=== PATIENT | female | born 1955 | race Caucasian/White ===

== ENCOUNTER 2021-04-15 13:23 | Outpatient (CLI) | payer MEDICARE, MEDICAID | END 2021-04-15 13:24 | disposition home or self-care (01) | LOC: CSHMAMMO 13:23 | PROVIDERS: ATTEND Transplant Surgery | DX: Z13.820 Encounter for screening for osteoporosis (principal); Z48.23 Encounter for aftercare following liver transplant; Z13.6 Encounter for screening for cardiovascular disorders; C22.0 Liver cell carcinoma; M81.0 Age-related osteoporosis without current pathological fracture | CPT/HCPCS: 77080 ==

== ENCOUNTER 2021-04-18 09:00 | Outpatient (CLI) | payer MEDICARE, MEDICAID | END 2021-04-18 09:01 | disposition home or self-care (01) | LOC: CSHNM 09:00 | PROVIDERS: ATTEND Transplant Surgery | DX: Z94.4 Liver transplant status (principal); Z12.89 Encounter for screening for malignant neoplasm of other sites | CPT/HCPCS: 78306; A9503 ==

== ENCOUNTER 2021-12-22 11:12 | Observation (INO) | payer OTHER ==
[2021-12-22 11:52] LABS: #Monocytes 0.3 10x3/uL (0.0-1.1); #Neutrophils 2.5 10x3/uL (1.5-8.4); %Basophils 0.3 % (0.0-2.0); %Eosinophils 1.2 % (0.0-6.0); %Lymphocytes 17.9 % (18.0-47.0); %Monocytes 8.6 % (0.0-10.0); %Neutrophils 71.7 % (40.0-75.0); Hemoglobin 9.3 g/dL (12.0-15.5); Mean Corpuscular HGB CONC 31.7 g/dL (32.0-36.0); Mean Corpuscular Hemoglobin 26.1 pg (27.0-33.0); Mean Corpuscular Volume 82.3 fl (81.6-98.3); Mean Platelet Volume 10.8 fl (7.4-10.4); Platelet Count 131 10x3/uL (150-450); RBC Distribution Width 14.7 % (11.5-14.5); Red Blood Cell (RBC) Count 3.56 10x6/uL (3.90-5.03); White Blood Cell (WBC) Count 3.5 10x3/uL (3.5-10.5)
[2021-12-22 12:00] LABS: ALT (SGPT) 11 U/L (8-55); AST (SGOT) 17 U/L (5-34); Alkaline Phosphatase 107 U/L (40-110); Anion Gap 14 mmol/L (10-20); BUN (Urea Nitrogen) 20 mg/dL (9.8-20.1); Bilirubin, Total 0.7 mg/dL (0.2-1.2); Calc. Creatinine Clearance 0 mL/min (70-130); Calcium 8.8 mg/dL (7.8-10.44); Carbon Dioxide 21 mmol/L (23-31); Chloride 110 mmol/L (98-107); Estimated GFR 51; Globulin 2.7 g/dL (2.4-3.5); Glucose 109 mg/dL (80-115); Lipase 37 U/L (8-78); Potassium 4.1 mmol/L (3.5-5.1); Protein, Total 6.7 g/dL (5.8-8.1); Sodium 141 mmol/L (136-145)
[2021-12-22] MEDS ORDERED: Iopamidol 300 61% 100 ML VIAL FS ONE (14:25)
[2021-12-22 15:12] LABS: Bilirubin Neg (Negative); Blood, Urine 25 (Negative); Clarity Sl. Cloudy (Clear); Glucose, Urine (Dipstick) Normal (Negative); Ketone, Urine Negative (Negative); Leukocyte 500 (Negative); Nitrite Negative (Negative); Protein, Urine (Dipstick) 30 mg/dl (Neg-Trace); Specific Gravity, Urine 1.015 (1.005-1.030); Urobilinogen Normal mg/dL (Less than 2)
[2021-12-22 15:26] LABS: Bacteria/HPF 3+ HPF (None Seen)
[2021-12-22] MEDS ORDERED: Morphine 4 MG/ML VIAL ONE (16:10)
[2021-12-22] MEDS ORDERED: Ondansetron PF 4 MG/2 ML Vial ONE (16:11)
[2021-12-22] MEDS ORDERED: methylPREDNISolone Sod Succ 40 MG VIAL ONE (16:11)
[2021-12-22] MEDS ORDERED: Famotidine/PF 20 mg/2ml Vial ONE (16:11)
[2021-12-22] MEDS ORDERED: diphenhydrAMINE 50 MG/ML VIAL ONE (16:11)
[2021-12-22] MEDS ORDERED: metroNIDAZOLE 500 MG/100 ML BAG ONE (18:08)
[2021-12-22] MEDS ORDERED: Calcium Carbonate 500 MG ChewTAB PO PRN (19:16)
[2021-12-22] MEDS ORDERED: Ondansetron PF 4 MG/2 ML Vial IVP PRN (19:16)
[2021-12-22] MEDS ORDERED: Zolpidem Tartrate 5 MG TAB PO PRN (19:16)
[2021-12-22] MEDS ORDERED: Guaifenesin DM 100-10/5 ML UDCUP PO PRN (19:16)
[2021-12-22] MEDS ORDERED: Acetaminophen 325 MG TAB PO PRN (19:16)
[2021-12-22] MEDS ORDERED: Dextrose 50% Abboject 50 ML SYRINGE SLOW IVP PRN (19:27)
[2021-12-22] MEDS ORDERED: Dextrose 5% in Water 1,000 ML IV PRN (19:27)
[2021-12-22] MEDS ORDERED: HumaLOG 300 UNITS/3 ML VIAL SC PRN (19:27)
[2021-12-22] MEDS ORDERED: Morphine 2 MG/ML VIAL SLOW IVP PRN (21:36)
[2021-12-22] MEDS ORDERED: Tacrolimus 1 MG CAP PO SCH (21:45)
[2021-12-22] MEDS ORDERED: Metoprolol Tartrate 50 MG TAB PO SCH (21:45)
[2021-12-22] MEDS ORDERED: cloNIDine 0.1 MG TAB PO SCH (21:45)
[2021-12-22] MEDS ORDERED: Mycophenolate 250 MG CAP PO SCH (21:45)
[2021-12-22] MEDS ORDERED: Gabapentin 300 MG CAP PO SCH (21:45)
[2021-12-22] MEDS ORDERED: Ursodiol 300 MG CAP PO SCH (21:45)
[2021-12-22] MEDS ORDERED: Lactated Ringer's 1,000 ML IV SCH (22:00)
[2021-12-22] MEDS: HYDROcodone/Acetaminophen 5/325 mg Tablet PO PRN (22:04)
[2021-12-23] MEDS: metroNIDAZOLE 500 MG in Premix Bag 1 BAG IVPB SCH ×3 (02:55→18:33)
[2021-12-23 05:09] LABS: Mean Corpuscular HGB CONC 32.4 g/dL (32.0-36.0); Mean Corpuscular Hemoglobin 26.5 pg (27.0-33.0); Mean Corpuscular Volume 81.8 fl (81.6-98.3); Mean Platelet Volume 11.7 fl (7.4-10.4); Platelet Count 97 10x3/uL (150-450); RBC Distribution Width 14.9 % (11.5-14.5)
[2021-12-23 05:10] LABS: #Monocytes 0.1 10x3/uL (0.0-1.1); #Neutrophils 1.6 10x3/uL (1.5-8.4); %Lymphocytes 15.5 % (18.0-47.0); %Monocytes 6.3 % (0.0-10.0); %Neutrophils 77.7 % (40.0-75.0)
[2021-12-23 05:19] LABS: Anion Gap 15 mmol/L (10-20); BUN (Urea Nitrogen) 16 mg/dL (9.8-20.1); Calc. Creatinine Clearance 72 mL/min (70-130); Calcium 8.6 mg/dL (7.8-10.44); Carbon Dioxide 20 mmol/L (23-31); Chloride 109 mmol/L (98-107); Estimated GFR 68; Glucose 150 mg/dL (80-115); Potassium 4.5 mmol/L (3.5-5.1); Sodium 139 mmol/L (136-145)
[2021-12-23] MEDS: HYDROcodone/Acetaminophen 5/325 mg Tablet PO PRN ×2 (07:55→20:29)
[2021-12-23] MEDS ORDERED: Enoxaparin Sodium 40 MG/0.4 ML SYRINGE SC SCH (09:00)
[2021-12-23] MEDS: Mycophenolate 250 MG CAP PO SCH ×2 (10:00→20:31)
[2021-12-23] MEDS: Gabapentin 300 MG CAP PO SCH ×2 (10:00→20:29)
[2021-12-23] MEDS: cloNIDine 0.1 MG TAB PO SCH ×2 (10:00→20:29)
[2021-12-23] MEDS: Ezetimibe 10 MG TAB PO SCH (10:00)
[2021-12-23] MEDS: Clopidogrel Bisulfate 75 MG TAB PO SCH (10:00)
[2021-12-23] MEDS: Aspirin 81 mg Enteric Coated Tablet PO SCH (17:12)
[2021-12-23] MEDS: Metoprolol Tartrate 50 MG TAB PO SCH ×2 (17:16→20:30)
[2021-12-23] MEDS: Ursodiol 300 MG CAP PO SCH ×2 (17:19→20:28)
[2021-12-23] MEDS: Tacrolimus 1 MG CAP PO SCH ×2 (17:19→20:29)
[2021-12-24] MEDS: metroNIDAZOLE 500 MG in Premix Bag 1 BAG IVPB SCH ×2 (02:00→09:19)
[2021-12-24 08:26] VITALS: TEMP 98.3
[2021-12-24] MEDS: Metoprolol Tartrate 50 MG TAB PO SCH (08:37)
[2021-12-24] MEDS: Mycophenolate 250 MG CAP PO SCH (08:37)
[2021-12-24] MEDS: Aspirin 81 mg Enteric Coated Tablet PO SCH (08:37)
[2021-12-24] MEDS: Gabapentin 300 MG CAP PO SCH (08:37)
[2021-12-24] MEDS: Clopidogrel Bisulfate 75 MG TAB PO SCH (08:37)
[2021-12-24 08:38] VITALS: BP 151/70
[2021-12-24] MEDS: Ezetimibe 10 MG TAB PO SCH (08:38)
[2021-12-24] MEDS: Tacrolimus 1 MG CAP PO SCH (08:38)
[2021-12-24] MEDS: Ursodiol 300 MG CAP PO SCH (08:38)
[2021-12-24] MEDS: cloNIDine 0.1 MG TAB PO SCH (08:38)
== END 2021-12-24 10:31 | disposition home or self-care (01) ==
LOC: CSHERS 11:12 → CSHTELE 19:16
PROVIDERS: ADMIT Student in an Organized Health Care Education/Training Program; ATTEND Family Medicine
DX: K52.9 Noninfective gastroenteritis and colitis, unspecified (principal); I25.10 Atherosclerotic heart disease of native coronary artery without angina pectoris; N18.9 Chronic kidney disease, unspecified; I13.0 Hypertensive heart and chronic kidney disease with heart failure and stage 1 through stage 4 chronic kidney disease, or unspecified chronic kidney disease; I50.9 Heart failure, unspecified; N17.9 Acute kidney failure, unspecified; K21.9 Gastro-esophageal reflux disease without esophagitis; D64.9 Anemia, unspecified; D69.6 Thrombocytopenia, unspecified; E11.21 Type 2 diabetes mellitus with diabetic nephropathy; E66.9 Obesity, unspecified; N39.0 Urinary tract infection, site not specified; E78.5 Hyperlipidemia, unspecified; N13.30 Unspecified hydronephrosis; Z20.822 Contact with and (suspected) exposure to COVID-19; Z68.30 Body mass index [BMI] 30.0-30.9, adult; Z91.041 Radiographic dye allergy status; Z79.82 Long term (current) use of aspirin; Z90.49 Acquired absence of other specified parts of digestive tract; Z95.5 Presence of coronary angioplasty implant and graft; Z90.710 Acquired absence of both cervix and uterus; Z79.4 Long term (current) use of insulin; Z79.899 Other long term (current) drug therapy; Z87.891 Personal history of nicotine dependence; Z94.4 Liver transplant status; Z85.05 Personal history of malignant neoplasm of liver
CPT/HCPCS: 74177; 80048; 80053; 82962 ×2; 83605; 83690; 84145; 84484; 85025 ×2; 87086; 93005; 96365; 96366; 96367; 96375; 96376 ×3; 99285; G0378 ×4; U0003; U0005; 36415; 36416; 81003; 81015; J1200; J1956; J2270; J2405; J2920; J7120; J7507; J7517; Q9967; S0028

== ENCOUNTER 2022-03-11 22:00 | Inpatient (IN) | payer OTHER, MEDICAID ==
[2022-03-11 23:37] LABS: ALT (SGPT) 14 U/L (8-55); AST (SGOT) 28 U/L (5-34); Alkaline Phosphatase 109 U/L (40-110); Anion Gap 17 mmol/L (10-20); BUN (Urea Nitrogen) 31 mg/dL (9.8-20.1); Bilirubin, Total 0.9 mg/dL (0.2-1.2); Calc. Creatinine Clearance 0 mL/min (70-130); Calcium 8.5 mg/dL (7.8-10.44); Carbon Dioxide 18 mmol/L (23-31); Chloride 107 mmol/L (98-107); Estimated GFR 33; Globulin 3.2 g/dL (2.4-3.5); Glucose 128 mg/dL (80-115); Lipase 28 U/L (8-78); Potassium 4.1 mmol/L (3.5-5.1); Protein, Total 7.2 g/dL (5.8-8.1); Sodium 138 mmol/L (136-145)
[2022-03-11 23:46] LABS: Mean Platelet Volume 11.8 fl (7.4-10.4); Platelet Count 84 10x3/uL (150-450)
[2022-03-11 23:48] LABS: #Monocytes 0.4 10x3/uL (0.0-1.1); #Neutrophils 2.3 10x3/uL (1.5-8.4); %Lymphocytes 29.2 % (18.0-47.0); %Monocytes 9.4 % (0.0-10.0); %Neutrophils 61.1 % (40.0-75.0); Hemoglobin 9.3 g/dL (12.0-15.5); Mean Corpuscular HGB CONC 32.2 g/dL (32.0-36.0); Mean Corpuscular Hemoglobin 26.7 pg (27.0-33.0); RBC Distribution Width 16.8 % (11.5-14.5); Red Blood Cell (RBC) Count 3.48 10x6/uL (3.90-5.03); White Blood Cell (WBC) Count 3.7 10x3/uL (3.5-10.5)
[2022-03-12] MEDS ORDERED: Famotidine/PF 20 mg/2ml Vial ONE (00:05)
[2022-03-12] MEDS ORDERED: diphenhydrAMINE 50 MG/ML VIAL ONE (00:05)
[2022-03-12] MEDS ORDERED: methylPREDNISolone Sod Succ 40 MG VIAL ONE (00:05)
[2022-03-12 00:17] LABS: Bilirubin Neg (Negative); Blood, Urine 150 (Negative); Clarity Cloudy (Clear); Glucose, Urine (Dipstick) Normal (Negative); Ketone, Urine Negative (Negative); Leukocyte 500 (Negative); Nitrite Negative (Negative); Protein, Urine (Dipstick) 30 mg/dl (Neg-Trace); Urobilinogen Normal mg/dL (Less than 2)
[2022-03-12 00:27] LABS: Bacteria/HPF 4+ HPF (None Seen); Oval Fat Bodies/HPF Rare HPF (None Seen); WBC/HPF 21-50 HPF (0-3)
[2022-03-12 00:56] LABS: SARS-CoV-2 NAA Rapid Test DETECTED (NotDetected)
[2022-03-12] MEDS ORDERED: cefTRIAXone\\ROCEPHIN 1 GM VIAL ONE (02:43)
[2022-03-12] MEDS ORDERED: Calcium Carbonate 500 MG ChewTAB PO PRN (03:10)
[2022-03-12] MEDS ORDERED: Guaifenesin DM 100-10/5 ML UDCUP PO PRN (03:10)
[2022-03-12] MEDS ORDERED: Senokot S 8.6-50 MG TAB PO PRN (03:10)
[2022-03-12] MEDS ORDERED: Dextrose 5% in Water 1,000 ML IV PRN (03:21)
[2022-03-12] MEDS ORDERED: Dextrose 50% Abboject 50 ML SYRINGE SLOW IVP PRN (03:21)
[2022-03-12] MEDS ORDERED: HumaLOG 300 UNITS/3 ML VIAL SC PRN (03:21)
[2022-03-12] MEDS ORDERED: Sodium Chloride 0.9% 1,000 ML IV SCH (04:00)
[2022-03-12] MEDS: HYDROcodone/Acetaminophen 5/325 mg Tablet PO PRN ×3 (04:30→23:02)
[2022-03-12] MEDS ORDERED: HYDROcodone/Acetaminophen 5/325 mg Tablet ONE ×2 (04:43→13:21)
[2022-03-12 08:38] LABS: Anion Gap 13 mmol/L (10-20); BUN (Urea Nitrogen) 26 mg/dL (9.8-20.1); Calc. Creatinine Clearance 0 mL/min (70-130); Calcium 6.5 mg/dL (7.8-10.44); Carbon Dioxide 14 mmol/L (23-31); Cardiac Risk 2.5 (Less than 4.5); Chloride 118 mmol/L (98-107); Cholesterol 71 mg/dl (< 200 Desired); Estimated GFR 58; Glucose 157 mg/dL (80-115); HDL Cholesterol 28 mg/dL (>60 Neg Risk); LDL Cholesterol, Calculated 30 mg/dL; Potassium 3.5 mmol/L (3.5-5.1); Sodium 141 mmol/L (136-145); Triglycerides 67 mg/dL (Less than 150)
[2022-03-12] MEDS ORDERED: Zinc Gluconate 50 MG TAB PO SCH (09:00)
[2022-03-12] MEDS ORDERED: Lactated Ringer's 1,000 ML IV SCH (09:30)
[2022-03-12] MEDS ORDERED: Clopidogrel Bisulfate 75 MG TAB ONE (09:38)
[2022-03-12] MEDS ORDERED: Gabapentin 300 MG CAP ONE (09:41)
[2022-03-12] MEDS ORDERED: Zinc Sulfate 220 MG CAP ONE (09:41)
[2022-03-12] MEDS: Ezetimibe 10 MG TAB PO SCH (10:01)
[2022-03-12] MEDS: Gabapentin 300 MG CAP PO SCH ×2 (10:01→20:35)
[2022-03-12] MEDS: Ursodiol 300 MG CAP PO SCH ×2 (10:01→20:35)
[2022-03-12] MEDS: Zinc Sulfate 220 MG CAP PO SCH (10:01)
[2022-03-12] MEDS: Tacrolimus 1 MG CAP PO SCH ×2 (10:01→20:35)
[2022-03-12] MEDS: Lantus 1000 UNITS/10 ML VIAL SC SCH (10:01)
[2022-03-12] MEDS: Mycophenolate 250 MG CAP PO SCH ×2 (10:01→20:35)
[2022-03-12] MEDS: Clopidogrel Bisulfate 75 MG TAB PO SCH (10:01)
[2022-03-12] MEDS ORDERED: cefTRIAXone\\ROCEPHIN 2 GM VIAL ONE (12:18)
[2022-03-12] MEDS ORDERED: cloNIDine 0.1 MG TAB PO SCH (22:45)
[2022-03-12 23:46] VITALS: BMI 28.5
[2022-03-13] MEDS: cefTRIAXone\\ROCEPHIN 2 GM in Sodium Chloride 0.9% 100 ML IVPB SCH (01:19)
[2022-03-13 02:22] LABS: Bilirubin Neg (Negative); Blood, Urine 10 (Negative); Clarity Clear (Clear); Glucose, Urine (Dipstick) Normal (Negative); Ketone, Urine Negative (Negative); Leukocyte 100 (Negative); Nitrite Negative (Negative); Protein, Urine (Dipstick) 30 mg/dl (Neg-Trace); Specific Gravity, Urine 1.015 (1.005-1.030); Urobilinogen Normal mg/dL (Less than 2)
[2022-03-13 02:31] LABS: Bacteria/HPF Rare-Few HPF (None Seen); RBC/HPF 0-3 HPF (0-3); Squamous Epithelial 0-3 HPF (0-3)
[2022-03-13 02:39] LABS: Creatinine, Urine 65.19 mg/dL (47-110)
[2022-03-13 04:44] LABS: Anion Gap 14 mmol/L (10-20); BUN (Urea Nitrogen) 30 mg/dL (9.8-20.1); Calc. Creatinine Clearance 41 mL/min (70-130); Calcium 8.1 mg/dL (7.8-10.44); Carbon Dioxide 18 mmol/L (23-31); Chloride 111 mmol/L (98-107); Estimated GFR 38; Glucose 98 mg/dL (80-115); Potassium 3.8 mmol/L (3.5-5.1); Sodium 139 mmol/L (136-145)
[2022-03-13 04:57] LABS: #Monocytes 0.2 10x3/uL (0.0-1.1); #Neutrophils 1.8 10x3/uL (1.5-8.4); %Basophils 0.4 % (0.0-2.0); %Lymphocytes 27.2 % (18.0-47.0); %Monocytes 5.7 % (0.0-10.0); %Neutrophils 66.3 % (40.0-75.0); Hemoglobin 9.1 g/dL (12.0-15.5); Mean Corpuscular HGB CONC 32.9 g/dL (32.0-36.0); Mean Corpuscular Hemoglobin 27.3 pg (27.0-33.0); Mean Corpuscular Volume 83.2 fl (81.6-98.3); Mean Platelet Volume 11.7 fl (7.4-10.4); Platelet Count 70 10x3/uL (150-450); RBC Distribution Width 16.7 % (11.5-14.5); Red Blood Cell (RBC) Count 3.33 10x6/uL (3.90-5.03); White Blood Cell (WBC) Count 2.7 10x3/uL (3.5-10.5)
[2022-03-13 07:00] LABS: Anisocytosis SLIGHT = 6-15 cells (100X) (0-5/hpf); Elliptocytes SLIGHT = 2-5 cells (100X) (0-1/hpf); Schistocytes SLIGHT = 2-5 cells (100X) (0-1/hpf)
[2022-03-13 07:01] LABS: Platelet Morphology Comment Appears Decreased
[2022-03-13] MEDS: Zinc Sulfate 220 MG CAP PO SCH (08:58)
[2022-03-13] MEDS: Mycophenolate 250 MG CAP PO SCH ×2 (08:58→19:59)
[2022-03-13] MEDS: Ezetimibe 10 MG TAB PO SCH (08:58)
[2022-03-13] MEDS: Ursodiol 300 MG CAP PO SCH ×2 (08:58→19:59)
[2022-03-13] MEDS: Gabapentin 300 MG CAP PO SCH ×2 (08:58→20:00)
[2022-03-13] MEDS: Clopidogrel Bisulfate 75 MG TAB PO SCH (08:59)
[2022-03-13] MEDS: Tacrolimus 1 MG CAP PO SCH ×2 (08:59→20:00)
[2022-03-13] MEDS: Lantus 1000 UNITS/10 ML VIAL SC SCH (09:47)
[2022-03-13] MEDS: Ondansetron PF 4 MG/2 ML Vial IVP PRN ×2 (11:17→19:58)
[2022-03-13] MEDS ORDERED: Guaifenesin DM 100-10/5 ML UDCUP ONE (17:28)
[2022-03-13] MEDS: HYDROcodone/Acetaminophen 5/325 mg Tablet PO PRN (17:29)
[2022-03-13] MEDS ORDERED: Guaifenesin DM 100-10/5 ML UDCUP PO PRN (18:42)
[2022-03-13] MEDS ORDERED: Benzonatate 100 MG CAP PO PRN (18:42)
[2022-03-13] MEDS ORDERED: Electrolyte Replacement Protocol 1 EACH FS SCH (18:45)
[2022-03-13] MEDS ORDERED: guaiFENesin/Codeine Phosphate 100 mg/10 mg 5 ml UD Cup PO PRN (19:02)
[2022-03-13] MEDS ORDERED: Ipratropium Bromide 0.06% Nasal Inhaler 15ml EA NARE PRN (19:07)
[2022-03-13] MEDS ORDERED: Promethazine HCl 12.5 MG, Admixture Fee 1 EACH in Sodium Chloride 0.9% 50 ML IVPB SCH (22:00)
[2022-03-13] MEDS: Polyethylene Glycol 3350 17 GM Packet PO SCH (22:46)
[2022-03-14] MEDS: Gabapentin 300 MG CAP PO SCH ×3 (01:32→20:37)
[2022-03-14] MEDS: Ursodiol 300 MG CAP PO SCH ×3 (01:33→20:37)
[2022-03-14] MEDS: Mycophenolate 250 MG CAP PO SCH ×3 (01:33→20:37)
[2022-03-14] MEDS: Tacrolimus 1 MG CAP PO SCH ×3 (01:33→20:37)
[2022-03-14] MEDS: Polyethylene Glycol 3350 17 GM Packet PO SCH ×3 (01:35→20:37)
[2022-03-14] MEDS: Ondansetron PF 4 MG/2 ML Vial IVP PRN ×4 (01:44→16:55)
[2022-03-14] MEDS: cefTRIAXone\\ROCEPHIN 2 GM in Sodium Chloride 0.9% 100 ML IVPB SCH (01:44)
[2022-03-14] MEDS: Famotidine/PF 20 mg/2ml Vial SLOW IVP SCH ×2 (01:44→01:45)
[2022-03-14] MEDS: Morphine 2 MG/ML VIAL SLOW IVP PRN ×2 (02:49→11:02)
[2022-03-14 05:17] LABS: PTT 28.7 sec (22.0-33.0); Prothrombin Time 11.3 sec (9.5-12.1)
[2022-03-14 05:24] LABS: Anion Gap 16 mmol/L (10-20); BUN (Urea Nitrogen) 17 mg/dL (9.8-20.1); Calc. Creatinine Clearance 58 mL/min (70-130); Calcium 8.4 mg/dL (7.8-10.44); Carbon Dioxide 18 mmol/L (23-31); Chloride 110 mmol/L (98-107); Estimated GFR 58; Glucose 102 mg/dL (80-115); Potassium 3.7 mmol/L (3.5-5.1); Sodium 140 mmol/L (136-145)
[2022-03-14 05:31] LABS: Magnesium 0.8 mg/dL (1.6-2.6)
[2022-03-14 05:35] LABS: #Monocytes 0.2 10x3/uL (0.0-1.1); #Neutrophils 2.5 10x3/uL (1.5-8.4); %Lymphocytes 14.7 % (18.0-47.0); %Monocytes 6.4 % (0.0-10.0); %Neutrophils 78.6 % (40.0-75.0); Hemoglobin 9.7 g/dL (12.0-15.5); Mean Corpuscular HGB CONC 32.8 g/dL (32.0-36.0); Mean Corpuscular Volume 82.5 fl (81.6-98.3); Mean Platelet Volume 12.4 fl (7.4-10.4); Platelet Count 77 10x3/uL (150-450); RBC Distribution Width 16.4 % (11.5-14.5); Red Blood Cell (RBC) Count 3.59 10x6/uL (3.90-5.03); White Blood Cell (WBC) Count 3.1 10x3/uL (3.5-10.5)
[2022-03-14] MEDS ORDERED: Magnesium 2 GM/50 ML(in water) 2 GM in Premix Bag 1 BAG IVPB SCH ×2 (06:00→10:00)
[2022-03-14] MEDS ORDERED: Polyethylene Glycol 3350 17 GM Packet PO SCH (09:00)
[2022-03-14] MEDS ORDERED: Lantus 1000 UNITS/10 ML VIAL SC SCH (09:00)
[2022-03-14] MEDS ORDERED: Acetaminophen 650 MG Suppository PR PRN (09:05)
[2022-03-14] MEDS ORDERED: Lactated Ringer's 1,000 ML IV SCH ×2 (10:00→20:00)
[2022-03-14] MEDS ORDERED: HumaLOG 300 UNITS/3 ML VIAL SC PRN (10:00)
[2022-03-14] MEDS: Labetalol HCl 100 MG/20 ML VIAL SLOW IVP PRN ×2 (10:21→16:55)
[2022-03-14] MEDS: Pantoprazole 40 MG VIAL IVP SCH (10:21)
[2022-03-14] MEDS: Clopidogrel Bisulfate 75 MG TAB PO SCH (11:02)
[2022-03-14] MEDS: Ezetimibe 10 MG TAB PO SCH (12:09)
[2022-03-14] MEDS: Zinc Sulfate 220 MG CAP PO SCH (12:10)
[2022-03-14] MEDS ORDERED: Artificial Tear Sol 15 ML BOT EA EYE PRN (13:03)
[2022-03-14] MEDS ORDERED: Bisacodyl 10 MG SUPP PR PRN (13:03)
[2022-03-14] MEDS ORDERED: Moisturizing Cream (Eucerin) 113 GM JAR TOP PRN (13:03)
[2022-03-14] MEDS ORDERED: Promethazine HCl 12.5 MG, Admixture Fee 1 EACH in Sodium Chloride 0.9% 50 ML IVPB PRN (20:38)
[2022-03-14] MEDS ORDERED: Ondansetron PF 4 MG/2 ML Vial IVP SCH (21:00)
[2022-03-14] MEDS ORDERED: Prochlorperazine Edisylate 5 MG, Admixture Fee 1 EACH in Sodium Chloride 0.9% 50 ML IVPB SCH (21:00)
[2022-03-14] MEDS: Ondansetron HCl/PF 8 MG, Admixture Fee 1 EACH in Sodium Chloride 0.9% 50 ML IVPB SCH (21:20)
[2022-03-15] MEDS: cefTRIAXone\\ROCEPHIN 2 GM in Sodium Chloride 0.9% 100 ML IVPB SCH (00:23)
[2022-03-15 04:57] LABS: Hemoglobin 9.4 g/dL (12.0-15.5); Lactic Acid 1.2 mmol/L (0.5-2.2); Mean Corpuscular HGB CONC 33.2 g/dL (32.0-36.0); Mean Corpuscular Volume 81.3 fl (81.6-98.3); Mean Platelet Volume 11.1 fl (7.4-10.4); Platelet Count 67 10x3/uL (150-450); RBC Distribution Width 16.5 % (11.5-14.5); Red Blood Cell (RBC) Count 3.48 10x6/uL (3.90-5.03); White Blood Cell (WBC) Count 2.2 10x3/uL (3.5-10.5)
[2022-03-15 05:14] LABS: ALT (SGPT) 14 U/L (8-55); AST (SGOT) 25 U/L (5-34); Albumin 3.9 g/dL (3.4-4.8); Alkaline Phosphatase 91 U/L (40-110); Anion Gap 16 mmol/L (10-20); BUN (Urea Nitrogen) 13 mg/dL (9.8-20.1); Bilirubin, Total 0.6 mg/dL (0.2-1.2); Calc. Creatinine Clearance 65 mL/min (70-130); Calcium 8.4 mg/dL (7.8-10.44); Carbon Dioxide 18 mmol/L (23-31); Chloride 109 mmol/L (98-107); Estimated GFR 67; Globulin 2.9 g/dL (2.4-3.5); Glucose 95 mg/dL (80-115); Potassium 3.2 mmol/L (3.5-5.1); Protein, Total 6.8 g/dL (5.8-8.1); Sodium 140 mmol/L (136-145)
[2022-03-15 05:31] LABS: MDiff Complete? YES
[2022-03-15 05:38] LABS: Band 11 % (5-11); Lymphocytes 24 % (21-51); Monocytes 11 % (0-10); Neutrophil 54 % (42-75)
[2022-03-15 05:40] LABS: Anisocytosis SLIGHT = 6-15 cells (100X) (0-5/hpf); Elliptocytes SLIGHT = 2-5 cells (100X) (0-1/hpf); Ovalocytes SLIGHT = 2-5 cells (100X) (0-1/hpf); Platelet Morphology Comment Appears Decreased
[2022-03-15] MEDS ORDERED: Potassium Chloride 20 MEQ TAB PO SCH (06:00)
[2022-03-15] MEDS: Ondansetron HCl/PF 8 MG, Admixture Fee 1 EACH in Sodium Chloride 0.9% 50 ML IVPB SCH (08:37)
[2022-03-15] MEDS: Pantoprazole 40 MG VIAL IVP SCH (08:37)
[2022-03-15] MEDS: Aspirin 300 MG Suppository PR SCH (08:37)
[2022-03-15] MEDS: Polyethylene Glycol 3350 17 GM Packet PO SCH (10:09)
[2022-03-15] MEDS: Ursodiol 300 MG CAP PO SCH (10:09)
[2022-03-15] MEDS: Clopidogrel Bisulfate 75 MG TAB PO SCH (10:09)
[2022-03-15] MEDS: Mycophenolate 250 MG CAP PO SCH (10:09)
[2022-03-15] MEDS: Tacrolimus 1 MG CAP PO SCH (10:09)
[2022-03-15] MEDS: Gabapentin 300 MG CAP PO SCH (10:10)
[2022-03-15] MEDS: D5W-AA 4.25% with LYTES 1,000 ML IV SCH (11:14)
[2022-03-15] MEDS ORDERED: Electrolyte Replacement Protocol 1 EACH FS SCH (16:15)
[2022-03-15 16:49] LABS: Magnesium 1.7 mg/dL (1.6-2.6)
[2022-03-15] MEDS ORDERED: Magnesium 2 GM/50 ML(in water) 2 GM in Premix Bag 1 BAG IVPB SCH (18:30)
[2022-03-16] MEDS ORDERED: Ondansetron ODT 4 MG TAB PO PRN (00:10)
[2022-03-16] MEDS ORDERED: Cephalexin 250 MG CAP PO SCH (00:15)
[2022-03-16] MEDS: Gabapentin 300 MG CAP PO SCH ×3 (00:32→20:59)
[2022-03-16] MEDS: Tacrolimus 1 MG CAP PO SCH ×3 (00:32→20:42)
[2022-03-16] MEDS: Mycophenolate 250 MG CAP PO SCH ×3 (00:32→20:42)
[2022-03-16] MEDS: Ondansetron HCl/PF 8 MG, Admixture Fee 1 EACH in Sodium Chloride 0.9% 50 ML IVPB SCH ×3 (00:33→20:41)
[2022-03-16] MEDS: Ursodiol 300 MG CAP PO SCH ×3 (00:33→20:42)
[2022-03-16] MEDS: Polyethylene Glycol 3350 17 GM Packet PO SCH ×2 (00:34→16:30)
[2022-03-16] MEDS: cefTRIAXone\\ROCEPHIN 2 GM in Sodium Chloride 0.9% 100 ML IVPB SCH (00:37)
[2022-03-16 06:07] LABS: #Monocytes 0.3 10x3/uL (0.0-1.1); #Neutrophils 1.3 10x3/uL (1.5-8.4); %Lymphocytes 29.4 % (18.0-47.0); %Monocytes 12.8 % (0.0-10.0); %Neutrophils 57.8 % (40.0-75.0); Hemoglobin 10.1 g/dL (12.0-15.5); Mean Corpuscular HGB CONC 33.4 g/dL (32.0-36.0); Mean Corpuscular Hemoglobin 27.3 pg (27.0-33.0); Mean Corpuscular Volume 81.6 fl (81.6-98.3); Platelet Count 76 10x3/uL (150-450); RBC Distribution Width 16.7 % (11.5-14.5); White Blood Cell (WBC) Count 2.2 10x3/uL (3.5-10.5)
[2022-03-16 06:11] LABS: Prothrombin Time 11.1 sec (9.5-12.1)
[2022-03-16 06:22] LABS: ALT (SGPT) 14 U/L (8-55); AST (SGOT) 26 U/L (5-34); Albumin 3.9 g/dL (3.4-4.8); Alkaline Phosphatase 85 U/L (40-110); Anion Gap 15 mmol/L (10-20); BUN (Urea Nitrogen) 10 mg/dL (9.8-20.1); Bilirubin, Total 0.9 mg/dL (0.2-1.2); Calc. Creatinine Clearance 62 mL/min (70-130); Calcium 8.7 mg/dL (7.8-10.44); Carbon Dioxide 20 mmol/L (23-31); Chloride 110 mmol/L (98-107); Estimated GFR 63; Globulin 2.9 g/dL (2.4-3.5); Glucose 89 mg/dL (80-115); Magnesium 1.5 mg/dL (1.6-2.6); Potassium 3.1 mmol/L (3.5-5.1); Protein, Total 6.8 g/dL (5.8-8.1); Sodium 142 mmol/L (136-145)
[2022-03-16] MEDS ORDERED: Potassium Chloride 20 MEQ TAB PO SCH ×2 (08:00→12:30)
[2022-03-16] MEDS ORDERED: Magnesium 2 GM/50 ML(in water) 2 GM in Premix Bag 1 BAG IVPB SCH ×2 (08:00→12:30)
[2022-03-16] MEDS ORDERED: Lidocaine 1% PF 5 ML VIAL ONE (08:51)
[2022-03-16] MEDS ORDERED: Sodium Bicarbonate 2.5 MEQ/5 ML VIAL ONE (08:51)
[2022-03-16] MEDS: Clopidogrel Bisulfate 75 MG TAB PO SCH (12:32)
[2022-03-16] MEDS: Pantoprazole 40 MG VIAL IVP SCH (12:33)
[2022-03-16] MEDS: Aspirin 300 MG Suppository PR SCH (14:16)
[2022-03-16] MEDS: Acetaminophen 325 MG TAB PO PRN (16:30)
[2022-03-16] MEDS: D5W-AA 4.25% with LYTES 1,000 ML IV SCH (17:22)
[2022-03-16 19:41] LABS: Campy jejuni + coli by PCR Negative (Negative); STEC Shiga Toxin 1+2 Negative (Negative); Salmonella spp. by PCR Negative (Negative); Shigella spp + EIEC by PCR Negative (Negative)
[2022-03-16] MEDS: Losartan 25 MG TAB PO SCH (20:42)
[2022-03-17] MEDS: D5W-AA 4.25% with LYTES 1,000 ML IV SCH (07:18)
[2022-03-17] MEDS: Pantoprazole 40 MG VIAL IVP SCH (08:43)
[2022-03-17 08:45] LABS: Hemoglobin 8.7 g/dL (12.0-15.5); Mean Corpuscular HGB CONC 33.1 g/dL (32.0-36.0); Mean Corpuscular Hemoglobin 27.1 pg (27.0-33.0); Mean Corpuscular Volume 81.9 fl (81.6-98.3); Mean Platelet Volume 10.6 fl (7.4-10.4); Platelet Count 70 10x3/uL (150-450); RBC Distribution Width 16.9 % (11.5-14.5); Red Blood Cell (RBC) Count 3.21 10x6/uL (3.90-5.03); White Blood Cell (WBC) Count 1.9 10x3/uL (3.5-10.5)
[2022-03-17] MEDS: Mycophenolate 250 MG CAP PO SCH ×2 (08:45→20:51)
[2022-03-17] MEDS: Clopidogrel Bisulfate 75 MG TAB PO SCH (08:45)
[2022-03-17] MEDS: Gabapentin 300 MG CAP PO SCH ×2 (08:45→20:51)
[2022-03-17] MEDS: Aspirin 300 MG Suppository PR SCH (08:46)
[2022-03-17] MEDS: Tacrolimus 1 MG CAP PO SCH ×2 (08:46→20:51)
[2022-03-17] MEDS: Ursodiol 300 MG CAP PO SCH ×2 (08:46→20:50)
[2022-03-17 08:54] LABS: ALT (SGPT) 14 U/L (8-55); AST (SGOT) 28 U/L (5-34); Albumin 3.5 g/dL (3.4-4.8); Alkaline Phosphatase 83 U/L (40-110); Anion Gap 12 mmol/L (10-20); BUN (Urea Nitrogen) 19 mg/dL (9.8-20.1); Bilirubin, Total 0.5 mg/dL (0.2-1.2); Calc. Creatinine Clearance 56 mL/min (70-130); Calcium 8.5 mg/dL (7.8-10.44); Carbon Dioxide 20 mmol/L (23-31); Chloride 110 mmol/L (98-107); Estimated GFR 56; Globulin 2.8 g/dL (2.4-3.5); Glucose 143 mg/dL (80-115); Magnesium 1.8 mg/dL (1.6-2.6); Potassium 4.4 mmol/L (3.5-5.1); Protein, Total 6.3 g/dL (5.8-8.1); Sodium 138 mmol/L (136-145)
[2022-03-17] MEDS: Acetaminophen 325 MG TAB PO PRN (09:10)
[2022-03-17] MEDS: Ondansetron HCl/PF 8 MG, Admixture Fee 1 EACH in Sodium Chloride 0.9% 50 ML IVPB SCH ×2 (09:12→20:47)
[2022-03-17] MEDS ORDERED: Magnesium 2 GM/50 ML(in water) 2 GM in Premix Bag 1 BAG IVPB SCH (09:15)
[2022-03-17 09:42] LABS: MDiff Complete? YES
[2022-03-17 09:49] LABS: Band 2 % (5-11); Lymphocytes 37 % (21-51); Monocytes 6 % (0-10); Neutrophil 55 % (42-75)
[2022-03-17 09:51] LABS: Anisocytosis SLIGHT = 6-15 cells (100X) (0-5/hpf); Ovalocytes SLIGHT = 2-5 cells (100X) (0-1/hpf); Platelet Morphology Comment Appears Decreased
[2022-03-17 18:37] LABS: Tacrolimus 4.6 ng/mL (2.0-20.0)
[2022-03-17] MEDS: Losartan 25 MG TAB PO SCH (20:51)
[2022-03-18 05:43] LABS: Hemoglobin 8.4 g/dL (12.0-15.5); Mean Corpuscular HGB CONC 32.6 g/dL (32.0-36.0); Mean Corpuscular Hemoglobin 27.1 pg (27.0-33.0); Mean Corpuscular Volume 83.2 fl (81.6-98.3); Mean Platelet Volume 13.1 fl (7.4-10.4); Platelet Count 67 10x3/uL (150-450); RBC Distribution Width 16.6 % (11.5-14.5); White Blood Cell (WBC) Count 1.8 10x3/uL (3.5-10.5)
[2022-03-18 05:46] LABS: ALT (SGPT) 12 U/L (8-55); AST (SGOT) 24 U/L (5-34); Albumin 3.4 g/dL (3.4-4.8); Alkaline Phosphatase 78 U/L (40-110); Anion Gap 12 mmol/L (10-20); BUN (Urea Nitrogen) 21 mg/dL (9.8-20.1); Bilirubin, Total 0.6 mg/dL (0.2-1.2); Calc. Creatinine Clearance 60 mL/min (70-130); Calcium 8.2 mg/dL (7.8-10.44); Carbon Dioxide 20 mmol/L (23-31); Chloride 108 mmol/L (98-107); Estimated GFR 61; Globulin 2.5 g/dL (2.4-3.5); Glucose 121 mg/dL (80-115); Magnesium 1.8 mg/dL (1.6-2.6); Potassium 4.3 mmol/L (3.5-5.1); Protein, Total 5.9 g/dL (5.8-8.1); Sodium 136 mmol/L (136-145)
[2022-03-18] MEDS ORDERED: Magnesium 2 GM/50 ML(in water) 2 GM in Premix Bag 1 BAG IVPB SCH (06:00)
[2022-03-18 06:12] LABS: MDiff Complete? YES
[2022-03-18 06:22] LABS: Band 7 % (5-11); Eosinophils 1 % (0-10); Lymphocytes 41 % (21-51); Monocytes 13 % (0-10); Neutrophil 38 % (42-75)
[2022-03-18 06:23] LABS: Elliptocytes SLIGHT = 2-5 cells (100X) (0-1/hpf); Ovalocytes SLIGHT = 2-5 cells (100X) (0-1/hpf); Platelet Morphology Comment Appears Decreased
[2022-03-18 06:45] LABS: Reflex for Review?? YES
[2022-03-18] MEDS: Mycophenolate 250 MG CAP PO SCH (08:58)
[2022-03-18] MEDS: Gabapentin 300 MG CAP PO SCH (08:58)
[2022-03-18] MEDS: Tacrolimus 1 MG CAP PO SCH (08:59)
[2022-03-18] MEDS: Clopidogrel Bisulfate 75 MG TAB PO SCH (08:59)
[2022-03-18] MEDS: Ursodiol 300 MG CAP PO SCH (09:00)
[2022-03-18] MEDS: Pantoprazole 40 MG VIAL IVP SCH (09:00)
[2022-03-18] MEDS: Aspirin 300 MG Suppository PR SCH (09:00)
[2022-03-18] MEDS: Ondansetron HCl/PF 8 MG, Admixture Fee 1 EACH in Sodium Chloride 0.9% 50 ML IVPB SCH (09:40)
[2022-03-18 10:14] VITALS: TEMP 98.4
[2022-03-18 11:56] VITALS: BP 154/83
== END 2022-03-18 14:00 | disposition home or self-care (01) | DRG 682 ==
LOC: CSHERS 22:00 → CSHERHOLD 03-12 03:45 → CSHTELE 03-12 18:56
PROVIDERS: ADMIT Student in an Organized Health Care Education/Training Program; ATTEND Family Medicine
PROC: 02HV33Z Insertion of Infusion Device into Superior Vena Cava, Percutaneous Approach (ICD-10-PCS; principal; 2022-03-16)
PROC: B548ZZA Ultrasonography of Superior Vena Cava, Guidance (ICD-10-PCS; 2022-03-16)
DX: N17.9 Acute kidney failure, unspecified (principal); I81 Portal vein thrombosis; U07.1 COVID-19; K76.6 Portal hypertension; Z94.4 Liver transplant status; N30.01 Acute cystitis with hematuria; I13.0 Hypertensive heart and chronic kidney disease with heart failure and stage 1 through stage 4 chronic kidney disease, or unspecified chronic kidney disease; A04.72 Enterocolitis due to Clostridium difficile, not specified as recurrent; K21.9 Gastro-esophageal reflux disease without esophagitis; D69.6 Thrombocytopenia, unspecified; R53.81 Other malaise; E11.42 Type 2 diabetes mellitus with diabetic polyneuropathy; E78.00 Pure hypercholesterolemia, unspecified; E11.22 Type 2 diabetes mellitus with diabetic chronic kidney disease; D63.1 Anemia in chronic kidney disease; I25.10 Atherosclerotic heart disease of native coronary artery without angina pectoris; I50.9 Heart failure, unspecified; E11.51 Type 2 diabetes mellitus with diabetic peripheral angiopathy without gangrene; Z85.05 Personal history of malignant neoplasm of liver; Z91.041 Radiographic dye allergy status; Z79.82 Long term (current) use of aspirin; Z79.4 Long term (current) use of insulin; Z79.899 Other long term (current) drug therapy; Z79.02 Long term (current) use of antithrombotics/antiplatelets; Z95.1 Presence of aortocoronary bypass graft; Z90.710 Acquired absence of both cervix and uterus; Z90.49 Acquired absence of other specified parts of digestive tract; Z95.5 Presence of coronary angioplasty implant and graft; Z80.3 Family history of malignant neoplasm of breast; Z80.0 Family history of malignant neoplasm of digestive organs; Z87.891 Personal history of nicotine dependence; I25.2 Old myocardial infarction
CPT/HCPCS: 36415; 36416; 36569; 71045; 74177; 80048; 80053; 80061; 80197; 81001; 81003; 81015; 82105; 82274; 82570; 83605; 83690; 83735; 84156; 85025; 85060; 85610; 85730; 87040; 87086; 87324; 87449; 87505; 93005; 96374; 96375; C1751; C9113; J0696; J1200; J1650; J1815; J2272; J2405; J2550; J2920; J3475; J3490; J7050; J7120; J7507; J7517; S0028

== ENCOUNTER 2022-04-27 09:47 | Outpatient (CLI) | payer OTHER, MEDICAID ==
[2022-04-27 11:11] LABS: Hemoglobin 9.5 g/dL (12.0-15.5); Mean Corpuscular HGB CONC 31.5 g/dL (32.0-36.0); Mean Corpuscular Hemoglobin 27.8 pg (27.0-33.0); Mean Corpuscular Volume 88.3 fl (81.6-98.3); Mean Platelet Volume 12.6 fl (7.4-10.4); Platelet Count 136 10x3/uL (150-450); RBC Distribution Width 16.3 % (11.5-14.5); Red Blood Cell (RBC) Count 3.42 10x6/uL (3.90-5.03); White Blood Cell (WBC) Count 5.1 10x3/uL (3.5-10.5)
[2022-04-27 11:20] LABS: Prothrombin Time 10.6 sec (9.5-12.1)
== END 2022-04-27 09:48 | disposition home or self-care (01) ==
LOC: CSHLAB 09:47
PROVIDERS: ATTEND Specialist
DX: Z01.818 Encounter for other preprocedural examination (principal)
CPT/HCPCS: 85027; 85610; 93005; 93010

== ENCOUNTER 2022-04-28 09:06 | Day surgery (SDC) | payer OTHER, MEDICAID ==
[~2022-04-28 09:06] MED LIST: Ascorbic Acid 500 mg Chewable Tablet ONE; Aspirin 325 MG TAB ONE
[2022-04-28] MEDS ORDERED: Iopamidol 300 61% 100 ML VIAL FS ONE (09:33)
[2022-04-28 10:44] LABS: Anion Gap 14 mmol/L (10-20); BUN (Urea Nitrogen) 27 mg/dL (9.8-20.1); Calc. Creatinine Clearance 0 mL/min (70-130); Carbon Dioxide 20 mmol/L (23-31); Chloride 110 mmol/L (98-107); Estimated GFR 41; Glucose 151 mg/dL (80-115); Potassium 4.6 mmol/L (3.5-5.1); Sodium 139 mmol/L (136-145)
[2022-04-28 11:27] VITALS: BP 129/72; TEMP 98.5
[2022-04-28] MEDS ORDERED: Heparin 10,000 UNITS/ 10 ML VIAL ONE (11:51)
[2022-04-28] MEDS ORDERED: Lidocaine 1% (PF) 30 ML VIAL ONE (11:51)
[2022-04-28] MEDS ORDERED: Midazolam HCl 2 mg/2 ml Vial ONE (11:52)
[2022-04-28] MEDS ORDERED: Fentanyl 100 MCG/2 ML VIAL ONE (11:52)
[2022-04-28] MEDS ORDERED: Ondansetron PF 4 MG/2 ML Vial ONE (11:53)
[2022-04-28] MEDS ORDERED: Nitroglycerin 50 MG/250 ML BOT 250 ML ONE (12:57)
[2022-04-28] MEDS ORDERED: FLU VACC QS2022-23(65YR UP)/PF 240 MCG/0.7 ML SYRINGE IM ONE (13:45)
== END 2022-04-28 17:40 | disposition home or self-care (01) ==
LOC: CSHSDC 09:06
PROVIDERS: ATTEND Specialist
DX: I70.213 Atherosclerosis of native arteries of extremities with intermittent claudication, bilateral legs (principal); I25.118 Atherosclerotic heart disease of native coronary artery with other forms of angina pectoris; I10 Essential (primary) hypertension; E78.2 Mixed hyperlipidemia; E11.59 Type 2 diabetes mellitus with other circulatory complications; K21.9 Gastro-esophageal reflux disease without esophagitis; I25.2 Old myocardial infarction; Z87.891 Personal history of nicotine dependence; Z88.8 Allergy status to other drugs, medicaments and biological substances; Z88.5 Allergy status to narcotic agent; Z91.041 Radiographic dye allergy status; Z79.02 Long term (current) use of antithrombotics/antiplatelets; Z79.899 Other long term (current) drug therapy; Z95.5 Presence of coronary angioplasty implant and graft; Z79.4 Long term (current) use of insulin
CPT/HCPCS: 37224; 37230; 37252; 37253; 75625; 75716; 75774; 80048; C1725; C1753; C1760 ×2; C1769 ×3; C1874; C1894; C2623; 99152; 99153; J1644; J2001; J2250; J2405; J3010; Q9967

== ENCOUNTER 2022-09-09 10:41 | Emergency (ER) | payer OTHER, MEDICAID ==
[~2022-09-09 10:41] MED LIST changes: -Ascorbic Acid 500 mg Chewable Tablet ONE; -Aspirin 325 MG TAB ONE; +Iopamidol 300 61% 100 ML VIAL FS ONE
[2022-09-09] MEDS ORDERED: Acetaminophen 500 MG TAB ONE (11:19)
[2022-09-09] MEDS ORDERED: Cefepime 2 GM VIAL ONE (11:27)
[2022-09-09 11:30] LABS: Mean Corpuscular HGB CONC 31.9 g/dL (32.0-36.0); Mean Corpuscular Hemoglobin 26.5 pg (27.0-33.0); Mean Corpuscular Volume 82.9 fl (81.6-98.3); Mean Platelet Volume 11.9 fl (7.4-10.4); Platelet Count 95 10x3/uL (150-450); RBC Distribution Width 15.7 % (11.5-14.5); White Blood Cell (WBC) Count 1.4 10x3/uL (3.5-10.5)
[2022-09-09 11:31] LABS: MDiff Complete? YES
[2022-09-09 11:43] LABS: ALT (SGPT) 18 U/L (8-55); AST (SGOT) 34 U/L (5-34); Albumin 4.4 g/dL (3.4-4.8); Alkaline Phosphatase 87 U/L (40-110); Anion Gap 17 mmol/L (10-20); BUN (Urea Nitrogen) 19 mg/dL (9.8-20.1); Bilirubin, Total 1.4 mg/dL (0.2-1.2); Calc. Creatinine Clearance 0 mL/min (70-130); Carbon Dioxide 20 mmol/L (23-31); Chloride 105 mmol/L (98-107); Estimated GFR 51; Glucose 130 mg/dL (80-115); Protein, Total 7.4 g/dL (5.8-8.1); Sodium 138 mmol/L (136-145)
[2022-09-09] MEDS ORDERED: VANCOMYCIN 2 GRAM/400 ML BAG 2 GM in Premix Bag 1 BAG IVPB SCH (11:45)
[2022-09-09] MEDS ORDERED: diphenhydrAMINE 50 MG/ML VIAL ONE (11:59)
[2022-09-09] MEDS ORDERED: methylPREDNISolone Sod Succ 40 MG VIAL ONE (11:59)
[2022-09-09] MEDS ORDERED: Famotidine/PF 20 mg/2ml Vial ONE (12:00)
[2022-09-09 12:20] LABS: Lymphocytes 31 % (21-51); Monocytes 26 % (0-10); Neutrophil 41 % (42-75); Reactive Lymphocytes 1 % (0-10)
[2022-09-09 12:24] LABS: Band 1 % (5-11)
[2022-09-09 12:27] LABS: Ovalocytes SLIGHT = 2-5 cells (100X) (0-1/hpf)
[2022-09-09 12:28] LABS: Anisocytosis SLIGHT = 6-15 cells (100X) (0-5/hpf); Platelet Adequacy Comment Appears Decreased
[2022-09-09 12:29] LABS: Reflex for Review?? YES
== END 2022-09-09 18:16 | disposition short-term general hospital (02) ==
LOC: CSHERS 10:41
DX: A41.9 Sepsis, unspecified organism (principal); D61.818 Other pancytopenia; L03.115 Cellulitis of right lower limb; I25.10 Atherosclerotic heart disease of native coronary artery without angina pectoris; I25.2 Old myocardial infarction; Z87.891 Personal history of nicotine dependence; I10 Essential (primary) hypertension; E11.9 Type 2 diabetes mellitus without complications
CPT/HCPCS: 36415; 71275; 80053; 83605; 84484; 85025; 85060; 85379; 87040; 93005; J0692; J1200; J2920; J3370; S0028

== ENCOUNTER 2022-09-24 18:33 | Inpatient (IN) | payer OTHER, MEDICAID ==
[2022-09-24 21:39] LABS: Bilirubin Neg (Negative); Blood, Urine 250 (Negative); Clarity Cloudy (Clear); Glucose, Urine (Dipstick) Normal (Negative); Ketone, Urine Negative (Negative); Leukocyte 500 (Negative); Nitrite Positive (Negative); Protein, Urine (Dipstick) 30 mg/dl (Neg-Trace); Specific Gravity, Urine 1.015 (1.005-1.030); Urobilinogen Normal mg/dL (Less than 2)
[2022-09-24 21:43] LABS: #Basophils 0.1 10x3/uL (0.0-0.2); #Eosinphils 0.1 10x3/uL (0.0-0.5); #Monocytes 0.4 10x3/uL (0.0-1.1); #Neutrophils 4.6 10x3/uL (1.5-8.4); %Basophils 0.8 % (0.0-2.0); %Eosinophils 1.1 % (0.0-6.0); %Lymphocytes 23.3 % (18.0-47.0); %Monocytes 5.4 % (0.0-10.0); %Neutrophils 68.8 % (40.0-75.0); Hematocrit 33.3 % (34.9-44.5); Hemoglobin 10.5 g/dL (12.0-15.5); Mean Corpuscular HGB CONC 31.5 g/dL (32.0-36.0); Mean Corpuscular Hemoglobin 27.1 pg (27.0-33.0); Mean Corpuscular Volume 85.8 fl (81.6-98.3); Platelet Count 95 10x3/uL (150-450); RBC Distribution Width 16.7 % (11.5-14.5); Red Blood Cell (RBC) Count 3.88 10x6/uL (3.90-5.03); White Blood Cell (WBC) Count 6.6 10x3/uL (3.5-10.5)
[2022-09-24 21:53] LABS: Bacteria/HPF 3+ HPF (None Seen); CAUTI Indications for Culture < 2yrs of age; Squamous Epithelial 0-3 HPF (0-3); WBC/HPF 21-50 HPF (0-3)
[2022-09-24 21:54] LABS: Urine Culture Reflex Yes Yes
[2022-09-24 22:01] LABS: ALT (SGPT) 14 U/L (8-55); AST (SGOT) 29 U/L (5-34); Albumin 4.3 g/dL (3.4-4.8); Alkaline Phosphatase 86 U/L (40-110); Anion Gap 20 mmol/L (10-20); BUN (Urea Nitrogen) 26 mg/dL (9.8-20.1); Bilirubin, Total 1.1 mg/dL (0.2-1.2); Calc. Creatinine Clearance 0 mL/min (70-130); Calcium 9.3 mg/dL (7.8-10.44); Carbon Dioxide 19 mmol/L (23-31); Chloride 106 mmol/L (98-107); Estimated GFR 33; Globulin 3.5 g/dL (2.4-3.5); Glucose 95 mg/dL (80-115); Lipase 33 U/L (8-78); Magnesium 1.6 mg/dL (1.6-2.6); Potassium 4.6 mmol/L (3.5-5.1); Protein, Total 7.8 g/dL (5.8-8.1); Sodium 140 mmol/L (136-145)
[2022-09-24 22:21] LABS: Troponin I Less than 0.010 ng/mL (< 0.028)
[2022-09-24] MEDS ORDERED: cefTRIAXone (ROCEPHIN) 1 GM VIAL ONE (23:16)
[2022-09-25 00:42] VITALS: BMI 26.5
[2022-09-25] MEDS ORDERED: Non-Formulary Medication 1 EACH (Evolocumab [Repatha Syringe] 140 MG/ML Syringe) TD SCH (03:45)
[2022-09-25] MEDS ORDERED: Non-Formulary Medication 1 EACH (Dulaglutide [Trulicity] 1.5 MG/0.5 ML Pen.Injctr) TD SCH (03:45)
[2022-09-25 03:57] LABS: #Eosinphils 0.1 10x3/uL (0.0-0.5); #Monocytes 0.3 10x3/uL (0.0-1.1); %Basophils 0.4 % (0.0-2.0); %Eosinophils 1.3 % (0.0-6.0); %Lymphocytes 27.7 % (18.0-47.0); %Monocytes 6.7 % (0.0-10.0); %Neutrophils 63.7 % (40.0-75.0); Hematocrit 28.6 % (34.9-44.5); Mean Corpuscular HGB CONC 31.5 g/dL (32.0-36.0); Mean Corpuscular Hemoglobin 26.8 pg (27.0-33.0); Mean Corpuscular Volume 85.1 fl (81.6-98.3); Mean Platelet Volume 11.3 fl (7.4-10.4); Platelet Count 106 10x3/uL (150-450); RBC Distribution Width 16.5 % (11.5-14.5); Red Blood Cell (RBC) Count 3.36 10x6/uL (3.90-5.03); White Blood Cell (WBC) Count 4.8 10x3/uL (3.5-10.5)
[2022-09-25 04:05] LABS: Anion Gap 15 mmol/L (10-20); BUN (Urea Nitrogen) 23 mg/dL (9.8-20.1); Calc. Creatinine Clearance 41 mL/min (70-130); Calcium 9.1 mg/dL (7.8-10.44); Carbon Dioxide 20 mmol/L (23-31); Chloride 110 mmol/L (98-107); Estimated GFR 41; Glucose 108 mg/dL (80-115); Magnesium 1.5 mg/dL (1.6-2.6); Potassium 4.3 mmol/L (3.5-5.1); Sodium 141 mmol/L (136-145)
[2022-09-25] MEDS: Sodium Chloride 0.9% 1,000 ML IV SCH ×2 (06:25→18:15)
[2022-09-25] MEDS ORDERED: Fluconazole 100 MG TAB PO SCH (09:00)
[2022-09-25] MEDS: Mycophenolate 250 MG CAP PO SCH (09:01)
[2022-09-25] MEDS: Gabapentin 300 MG CAP PO SCH ×3 (09:02→19:47)
[2022-09-25] MEDS: cloNIDine 0.1 MG TAB PO SCH ×2 (09:03→19:49)
[2022-09-25] MEDS: Aspirin 81 mg Enteric Coated Tablet PO SCH (09:05)
[2022-09-25] MEDS: Losartan 25 MG TAB PO SCH (09:05)
[2022-09-25] MEDS: Ezetimibe 10 MG TAB PO SCH ×2 (09:05→19:45)
[2022-09-25] MEDS: Ursodiol 300 MG CAP PO SCH ×2 (09:05→19:49)
[2022-09-25] MEDS: Tacrolimus 1 MG CAP PO SCH (09:05)
[2022-09-25] MEDS: Clopidogrel Bisulfate 75 MG TAB PO SCH (09:05)
[2022-09-25] MEDS ORDERED: traMADol HCl 50 MG TAB PO SCH (20:00)
[2022-09-25] MEDS: cefTRIAXone\\ROCEPHIN 1 GM in Sodium Chloride 0.9% 100 ML IVPB SCH (23:27)
[2022-09-26] MEDS: Atorvastatin Calcium 40 MG TAB PO SCH ×2 (01:26→20:28)
[2022-09-26] MEDS: Mycophenolate 250 MG CAP PO SCH ×3 (01:27→20:30)
[2022-09-26] MEDS: Tacrolimus 1 MG CAP PO SCH (01:27)
[2022-09-26 04:52] LABS: Anion Gap 13 mmol/L (10-20); BUN (Urea Nitrogen) 18 mg/dL (9.8-20.1); Calc. Creatinine Clearance 51 mL/min (70-130); Calcium 8.7 mg/dL (7.8-10.44); Carbon Dioxide 18 mmol/L (23-31); Chloride 111 mmol/L (98-107); Estimated GFR 53; Glucose 109 mg/dL (80-115); Potassium 4.3 mmol/L (3.5-5.1); Sodium 138 mmol/L (136-145)
[2022-09-26 05:02] LABS: #Eosinphils 0.1 10x3/uL (0.0-0.5); #Monocytes 0.2 10x3/uL (0.0-1.1); #Neutrophils 1.7 10x3/uL (1.5-8.4); %Basophils 0.7 % (0.0-2.0); %Lymphocytes 35.5 % (18.0-47.0); %Monocytes 5.6 % (0.0-10.0); %Neutrophils 55.9 % (40.0-75.0); Hematocrit 27.9 % (34.9-44.5); Hemoglobin 8.5 g/dL (12.0-15.5); Mean Corpuscular HGB CONC 30.5 g/dL (32.0-36.0); Mean Corpuscular Hemoglobin 26.5 pg (27.0-33.0); Mean Corpuscular Volume 86.9 fl (81.6-98.3); Mean Platelet Volume 11.6 fl (7.4-10.4); RBC Distribution Width 16.4 % (11.5-14.5); Red Blood Cell (RBC) Count 3.21 10x6/uL (3.90-5.03)
[2022-09-26 05:03] LABS: Platelet Count 93 10x3/uL (150-450)
[2022-09-26] MEDS: Sodium Chloride 0.9% 1,000 ML IV SCH (05:27)
[2022-09-26] MEDS: Gabapentin 300 MG CAP PO SCH ×3 (08:27→20:28)
[2022-09-26] MEDS: Aspirin 81 mg Enteric Coated Tablet PO SCH (08:27)
[2022-09-26] MEDS: Clopidogrel Bisulfate 75 MG TAB PO SCH (08:28)
[2022-09-26] MEDS: Ezetimibe 10 MG TAB PO SCH ×2 (08:28→20:29)
[2022-09-26] MEDS: Losartan 25 MG TAB PO SCH (08:28)
[2022-09-26] MEDS: cloNIDine 0.1 MG TAB PO SCH ×2 (08:29→20:29)
[2022-09-26] MEDS: Ursodiol 300 MG CAP PO SCH ×2 (08:30→20:31)
[2022-09-26] MEDS: Tacrolimus 0.5 MG CAP PO SCH ×2 (09:45→20:31)
[2022-09-26] MEDS: Lidocaine 4% Patch TD SCH (13:33)
[2022-09-26] MEDS: cefTRIAXone\\ROCEPHIN 1 GM in Sodium Chloride 0.9% 100 ML IVPB SCH (23:07)
[2022-09-26] MEDS: Transdermal Patch Removal TOP SCH (23:09)
[2022-09-27 04:45] LABS: Hematocrit 26.7 % (34.9-44.5); Hemoglobin 8.3 g/dL (12.0-15.5); Mean Corpuscular Hemoglobin 26.9 pg (27.0-33.0); Mean Platelet Volume 11.6 fl (7.4-10.4); Platelet Count 76 10x3/uL (150-450); RBC Distribution Width 16.5 % (11.5-14.5); Red Blood Cell (RBC) Count 3.08 10x6/uL (3.90-5.03); White Blood Cell (WBC) Count 2.6 10x3/uL (3.5-10.5)
[2022-09-27] MEDS: Aspirin 81 mg Enteric Coated Tablet PO SCH (08:55)
[2022-09-27] MEDS: cloNIDine 0.1 MG TAB PO SCH (08:55)
[2022-09-27] MEDS: Mycophenolate 250 MG CAP PO SCH ×2 (08:55→20:47)
[2022-09-27] MEDS: Ursodiol 300 MG CAP PO SCH ×2 (08:55→20:43)
[2022-09-27] MEDS: Losartan 25 MG TAB PO SCH (08:55)
[2022-09-27] MEDS: Ezetimibe 10 MG TAB PO SCH ×2 (08:56→20:44)
[2022-09-27] MEDS: Tacrolimus 0.5 MG CAP PO SCH ×2 (08:56→20:46)
[2022-09-27] MEDS: Gabapentin 300 MG CAP PO SCH ×3 (08:56→20:44)
[2022-09-27] MEDS: Clopidogrel Bisulfate 75 MG TAB PO SCH (08:56)
[2022-09-27] MEDS: Lidocaine 4% Patch TD SCH (11:38)
[2022-09-27] MEDS: Atorvastatin Calcium 40 MG TAB PO SCH (20:44)
[2022-09-27] MEDS: cefTRIAXone\\ROCEPHIN 1 GM in Sodium Chloride 0.9% 100 ML IVPB SCH (20:45)
[2022-09-27] MEDS ORDERED: Acetaminophen 325 MG TAB PO PRN (23:46)
[2022-09-28] MEDS ORDERED: traMADol HCl 50 MG TAB PO SCH (00:45)
[2022-09-28] MEDS: Transdermal Patch Removal TOP SCH (01:06)
[2022-09-28] MEDS: cloNIDine 0.1 MG TAB PO SCH ×3 (04:04→21:12)
[2022-09-28] MEDS: Tacrolimus 0.5 MG CAP PO SCH ×3 (10:31→21:13)
[2022-09-28] MEDS: Mycophenolate 250 MG CAP PO SCH ×3 (10:31→21:13)
[2022-09-28] MEDS: Aspirin 81 mg Enteric Coated Tablet PO SCH (10:31)
[2022-09-28] MEDS: Ezetimibe 10 MG TAB PO SCH ×2 (10:32→21:12)
[2022-09-28] MEDS: Gabapentin 300 MG CAP PO SCH ×3 (10:32→21:13)
[2022-09-28] MEDS: Ursodiol 300 MG CAP PO SCH ×2 (10:33→21:12)
[2022-09-28] MEDS: Losartan 25 MG TAB PO SCH (10:33)
[2022-09-28] MEDS: Clopidogrel Bisulfate 75 MG TAB PO SCH (10:33)
[2022-09-28] MEDS: Lidocaine 4% Patch TD SCH (11:09)
[2022-09-28] MEDS ORDERED: HYDROcodone/Acetaminophen 5/325 mg Tablet PO SCH (15:00)
[2022-09-28] MEDS: Atorvastatin Calcium 40 MG TAB PO SCH (21:12)
[2022-09-28] MEDS: cefTRIAXone\\ROCEPHIN 1 GM in Sodium Chloride 0.9% 100 ML IVPB SCH (23:12)
[2022-09-29] MEDS: Transdermal Patch Removal TOP SCH (00:27)
[2022-09-29] MEDS: cloNIDine 0.1 MG TAB PO SCH ×2 (09:37→22:16)
[2022-09-29] MEDS: Aspirin 81 mg Enteric Coated Tablet PO SCH (09:37)
[2022-09-29] MEDS: Ezetimibe 10 MG TAB PO SCH ×2 (09:38→22:16)
[2022-09-29] MEDS: Clopidogrel Bisulfate 75 MG TAB PO SCH (09:38)
[2022-09-29] MEDS: Losartan 25 MG TAB PO SCH (09:39)
[2022-09-29] MEDS: Gabapentin 300 MG CAP PO SCH ×3 (09:39→23:31)
[2022-09-29] MEDS: Mycophenolate 250 MG CAP PO SCH ×2 (09:40→22:15)
[2022-09-29] MEDS: Ursodiol 300 MG CAP PO SCH ×2 (09:41→22:16)
[2022-09-29] MEDS: Tacrolimus 0.5 MG CAP PO SCH ×2 (09:41→22:15)
[2022-09-29] MEDS: Lidocaine 4% Patch TD SCH (11:30)
[2022-09-29] MEDS ORDERED: Lorazepam 2 MG/ML VIAL SLOW IVP SCH (16:30)
[2022-09-29 16:52] LABS: Anion Gap 18 mmol/L (10-20); BUN (Urea Nitrogen) 16 mg/dL (9.8-20.1); Calc. Creatinine Clearance 47 mL/min (70-130); Carbon Dioxide 17 mmol/L (23-31); Chloride 107 mmol/L (98-107); Estimated GFR 48; Glucose 126 mg/dL (80-115); Magnesium 1.4 mg/dL (1.6-2.6); Potassium 4.6 mmol/L (3.5-5.1); Sodium 137 mmol/L (136-145)
[2022-09-29] MEDS ORDERED: Magnesium 2 GM/50 ML(in water) 2 GM in Premix Bag 1 BAG IVPB SCH (17:00)
[2022-09-29] MEDS: Atorvastatin Calcium 40 MG TAB PO SCH (22:17)
[2022-09-29] MEDS ORDERED: Gabapentin 300 MG CAP PO SCH (22:30)
[2022-09-29] MEDS: cefTRIAXone\\ROCEPHIN 1 GM in Sodium Chloride 0.9% 100 ML IVPB SCH (23:30)
[2022-09-30] MEDS: Transdermal Patch Removal TOP SCH ×2 (00:15→23:56)
[2022-09-30 05:00] LABS: Hematocrit 29.9 % (34.9-44.5); Hemoglobin 9.5 g/dL (12.0-15.5); Mean Corpuscular HGB CONC 31.8 g/dL (32.0-36.0); Mean Corpuscular Hemoglobin 26.9 pg (27.0-33.0); Mean Corpuscular Volume 84.7 fl (81.6-98.3); Mean Platelet Volume 12.5 fl (7.4-10.4); Platelet Count 115 10x3/uL (150-450); RBC Distribution Width 16.5 % (11.5-14.5); Red Blood Cell (RBC) Count 3.53 10x6/uL (3.90-5.03); White Blood Cell (WBC) Count 4.5 10x3/uL (3.5-10.5)
[2022-09-30 05:17] LABS: Anion Gap 14 mmol/L (10-20); BUN (Urea Nitrogen) 16 mg/dL (9.8-20.1); Calc. Creatinine Clearance 56 mL/min (70-130); Calcium 9.1 mg/dL (7.8-10.44); Carbon Dioxide 19 mmol/L (23-31); Chloride 107 mmol/L (98-107); Estimated GFR 59; Glucose 104 mg/dL (80-115); Potassium 4.3 mmol/L (3.5-5.1); Sodium 136 mmol/L (136-145)
[2022-09-30] MEDS ORDERED: Lactated Ringer's 500 ML IV SCH ×2 (06:00→06:15)
[2022-09-30 06:55] LABS: Magnesium 2.1 mg/dL (1.6-2.6); Phosphorus 3.7 mg/dL (2.3-4.7)
[2022-09-30] MEDS: Losartan 25 MG TAB PO SCH (09:34)
[2022-09-30] MEDS: Aspirin 81 mg Enteric Coated Tablet PO SCH (09:34)
[2022-09-30] MEDS: Gabapentin 300 MG CAP PO SCH ×3 (09:34→20:54)
[2022-09-30] MEDS: Ursodiol 300 MG CAP PO SCH ×2 (09:34→20:54)
[2022-09-30] MEDS: Ezetimibe 10 MG TAB PO SCH ×2 (09:35→20:55)
[2022-09-30] MEDS: Tacrolimus 0.5 MG CAP PO SCH ×2 (09:35→20:53)
[2022-09-30] MEDS: Clopidogrel Bisulfate 75 MG TAB PO SCH (09:35)
[2022-09-30] MEDS: cloNIDine 0.1 MG TAB PO SCH ×2 (09:35→20:56)
[2022-09-30] MEDS: Mycophenolate 250 MG CAP PO SCH ×2 (09:38→20:56)
[2022-09-30] MEDS: Lidocaine 4% Patch TD SCH (12:55)
[2022-09-30] MEDS ORDERED: Gabapentin 300 MG CAP PO SCH ×3 (15:00→21:00)
[2022-09-30] MEDS ORDERED: Lorazepam 2 MG/ML VIAL SLOW IVP PRN (15:07)
[2022-09-30] MEDS: Atorvastatin Calcium 40 MG TAB PO SCH (20:55)
[2022-10-01 04:33] LABS: ALT (SGPT) 10 U/L (8-55); AST (SGOT) 19 U/L (5-34); Albumin 3.3 g/dL (3.4-4.8); Alkaline Phosphatase 67 U/L (40-110); Anion Gap 12 mmol/L (10-20); BUN (Urea Nitrogen) 21 mg/dL (9.8-20.1); Bilirubin, Total 0.8 mg/dL (0.2-1.2); Calc. Creatinine Clearance 47 mL/min (70-130); Calcium 8.4 mg/dL (7.8-10.44); Carbon Dioxide 21 mmol/L (23-31); Chloride 107 mmol/L (98-107); Estimated GFR 47; Globulin 2.6 g/dL (2.4-3.5); Glucose 113 mg/dL (80-115); Magnesium 1.9 mg/dL (1.6-2.6); Potassium 4.4 mmol/L (3.5-5.1); Protein, Total 5.9 g/dL (5.8-8.1); Sodium 136 mmol/L (136-145)
[2022-10-01 04:42] LABS: #Eosinphils 0.1 10x3/uL (0.0-0.5); #Monocytes 0.3 10x3/uL (0.0-1.1); #Neutrophils 1.6 10x3/uL (1.5-8.4); %Basophils 0.6 % (0.0-2.0); %Eosinophils 1.6 % (0.0-6.0); %Lymphocytes 40.2 % (18.0-47.0); %Monocytes 7.9 % (0.0-10.0); %Neutrophils 49.4 % (40.0-75.0); Hematocrit 27.3 % (34.9-44.5); Hemoglobin 8.6 g/dL (12.0-15.5); Mean Corpuscular HGB CONC 31.5 g/dL (32.0-36.0); Mean Corpuscular Volume 85.8 fl (81.6-98.3); Mean Platelet Volume 11.7 fl (7.4-10.4); Platelet Count 90 10x3/uL (150-450); RBC Distribution Width 16.5 % (11.5-14.5); Red Blood Cell (RBC) Count 3.18 10x6/uL (3.90-5.03); White Blood Cell (WBC) Count 3.2 10x3/uL (3.5-10.5)
[2022-10-01 05:06] LABS: Platelet Adequacy Comment Appears Decreased
[2022-10-01 05:07] LABS: RBC Morph Comment Within Normal Limits
[2022-10-01] MEDS ORDERED: Lactated Ringer's 1,000 ML IV SCH (09:30)
[2022-10-01] MEDS: Clopidogrel Bisulfate 75 MG TAB PO SCH (09:59)
[2022-10-01] MEDS: Ezetimibe 10 MG TAB PO SCH ×2 (09:59→20:35)
[2022-10-01] MEDS: Aspirin 81 mg Enteric Coated Tablet PO SCH (09:59)
[2022-10-01] MEDS: Ursodiol 300 MG CAP PO SCH ×2 (10:00→20:36)
[2022-10-01] MEDS: Gabapentin 300 MG CAP PO SCH ×2 (10:00→20:34)
[2022-10-01] MEDS: Losartan 25 MG TAB PO SCH (10:00)
[2022-10-01] MEDS: Mycophenolate 250 MG CAP PO SCH ×2 (10:01→20:35)
[2022-10-01] MEDS: cloNIDine 0.1 MG TAB PO SCH ×2 (10:01→20:35)
[2022-10-01] MEDS: Tacrolimus 0.5 MG CAP PO SCH ×2 (10:02→20:35)
[2022-10-01] MEDS: Lidocaine 4% Patch TD SCH (11:32)
[2022-10-01] MEDS: Atorvastatin Calcium 40 MG TAB PO SCH (20:34)
[2022-10-02] MEDS: Transdermal Patch Removal TOP SCH (00:43)
[2022-10-02 03:50] LABS: #Eosinphils 0.1 10x3/uL (0.0-0.5); #Monocytes 0.3 10x3/uL (0.0-1.1); #Neutrophils 4.1 10x3/uL (1.5-8.4); %Basophils 0.5 % (0.0-2.0); %Eosinophils 1.2 % (0.0-6.0); %Lymphocytes 19.9 % (18.0-47.0); %Monocytes 5.6 % (0.0-10.0); %Neutrophils 72.6 % (40.0-75.0); Hematocrit 30.8 % (34.9-44.5); Hemoglobin 9.8 g/dL (12.0-15.5); Mean Corpuscular HGB CONC 31.8 g/dL (32.0-36.0); Mean Corpuscular Hemoglobin 26.7 pg (27.0-33.0); Mean Corpuscular Volume 83.9 fl (81.6-98.3); Mean Platelet Volume 11.1 fl (7.4-10.4); Platelet Count 105 10x3/uL (150-450); RBC Distribution Width 16.4 % (11.5-14.5); Red Blood Cell (RBC) Count 3.67 10x6/uL (3.90-5.03); White Blood Cell (WBC) Count 5.7 10x3/uL (3.5-10.5)
[2022-10-02 04:09] LABS: ALT (SGPT) 11 U/L (8-55); AST (SGOT) 22 U/L (5-34); Albumin 3.7 g/dL (3.4-4.8); Alkaline Phosphatase 78 U/L (40-110); Anion Gap 15 mmol/L (10-20); BUN (Urea Nitrogen) 18 mg/dL (9.8-20.1); Bilirubin, Total 0.8 mg/dL (0.2-1.2); Calc. Creatinine Clearance 61 mL/min (70-130); Calcium 8.9 mg/dL (7.8-10.44); Carbon Dioxide 18 mmol/L (23-31); Chloride 107 mmol/L (98-107); Estimated GFR 65; Globulin 3.3 g/dL (2.4-3.5); Glucose 114 mg/dL (80-115); Potassium 4.1 mmol/L (3.5-5.1); Sodium 136 mmol/L (136-145)
[2022-10-02 04:20] LABS: Platelet Adequacy Comment Appears Decreased; RBC Morph Comment Within Normal Limits
[2022-10-02] MEDS: Lactated Ringer's 1,000 ML IV SCH (04:52)
[2022-10-02] MEDS ORDERED: Magnevist 469MG/ML 20 ML VIAL ONE (10:06)
[2022-10-02] MEDS: Amlodipine 10 MG TAB PO SCH (14:22)
[2022-10-02] MEDS: cloNIDine 0.1 MG TAB PO SCH (14:22)
[2022-10-02] MEDS: Aspirin 81 mg Enteric Coated Tablet PO SCH (14:22)
[2022-10-02] MEDS: Losartan 25 MG TAB PO SCH (14:23)
[2022-10-02] MEDS: Gabapentin 300 MG CAP PO SCH (14:23)
[2022-10-02] MEDS: Clopidogrel Bisulfate 75 MG TAB PO SCH (14:23)
[2022-10-02] MEDS: Ezetimibe 10 MG TAB PO SCH (14:23)
[2022-10-02] MEDS: Mycophenolate 250 MG CAP PO SCH (14:24)
[2022-10-02] MEDS: Ursodiol 300 MG CAP PO SCH (14:24)
[2022-10-02] MEDS: Tacrolimus 0.5 MG CAP PO SCH (14:24)
[2022-10-02] MEDS: Lidocaine 4% Patch TD SCH (14:50)
[2022-10-03] MEDS: Lactated Ringer's 1,000 ML IV SCH ×2 (00:08→23:08)
[2022-10-03] MEDS: Ursodiol 300 MG CAP PO SCH ×3 (00:09→22:53)
[2022-10-03] MEDS: Mycophenolate 250 MG CAP PO SCH ×3 (00:09→22:53)
[2022-10-03] MEDS: Tacrolimus 0.5 MG CAP PO SCH ×3 (00:09→22:55)
[2022-10-03] MEDS: cloNIDine 0.1 MG TAB PO SCH ×3 (00:10→22:54)
[2022-10-03] MEDS: Ezetimibe 10 MG TAB PO SCH ×3 (00:10→22:53)
[2022-10-03] MEDS: Gabapentin 300 MG CAP PO SCH ×3 (00:11→22:53)
[2022-10-03] MEDS: Atorvastatin Calcium 40 MG TAB PO SCH ×2 (00:11→22:54)
[2022-10-03] MEDS: Transdermal Patch Removal TOP SCH ×2 (01:36→23:10)
[2022-10-03 05:26] LABS: #Monocytes 0.3 10x3/uL (0.0-1.1); #Neutrophils 3.2 10x3/uL (1.5-8.4); %Basophils 0.4 % (0.0-2.0); %Eosinophils 0.4 % (0.0-6.0); %Lymphocytes 23.5 % (18.0-47.0); %Neutrophils 68.3 % (40.0-75.0); Hemoglobin 10.3 g/dL (12.0-15.5); Mean Corpuscular HGB CONC 32.2 g/dL (32.0-36.0); Mean Corpuscular Hemoglobin 27.2 pg (27.0-33.0); Mean Corpuscular Volume 84.4 fl (81.6-98.3); Mean Platelet Volume 11.7 fl (7.4-10.4); Platelet Count 129 10x3/uL (150-450); RBC Distribution Width 16.5 % (11.5-14.5); Red Blood Cell (RBC) Count 3.79 10x6/uL (3.90-5.03); White Blood Cell (WBC) Count 4.7 10x3/uL (3.5-10.5)
[2022-10-03 05:44] LABS: ALT (SGPT) 13 U/L (8-55); AST (SGOT) 27 U/L (5-34); Albumin 3.9 g/dL (3.4-4.8); Alkaline Phosphatase 76 U/L (40-110); Anion Gap 16 mmol/L (10-20); BUN (Urea Nitrogen) 12 mg/dL (9.8-20.1); Calc. Creatinine Clearance 69 mL/min (70-130); Calcium 9.2 mg/dL (7.8-10.44); Carbon Dioxide 20 mmol/L (23-31); Chloride 104 mmol/L (98-107); Estimated GFR 76; Globulin 3.5 g/dL (2.4-3.5); Glucose 126 mg/dL (80-115); Potassium 4.1 mmol/L (3.5-5.1); Protein, Total 7.4 g/dL (5.8-8.1); Sodium 136 mmol/L (136-145)
[2022-10-03] MEDS ORDERED: hydrALAZINE 20 MG/ML VIAL SLOW IVP PRN (08:04)
[2022-10-03] MEDS ORDERED: hydrALAZINE 20 MG/ML VIAL SLOW IVP SCH (09:00)
[2022-10-03] MEDS: Lidocaine 4% Patch TD SCH (11:35)
[2022-10-03] MEDS: Aspirin 81 mg Enteric Coated Tablet PO SCH (11:36)
[2022-10-03] MEDS: Amlodipine 10 MG TAB PO SCH (11:36)
[2022-10-03] MEDS: Clopidogrel Bisulfate 75 MG TAB PO SCH (11:37)
[2022-10-03] MEDS: Losartan 25 MG TAB PO SCH (11:37)
[2022-10-03 13:22] LABS: SARS-CoV-2 NAA Rapid Test Not Detected (NotDetected)
[2022-10-04 05:13] LABS: #Eosinphils 0.1 10x3/uL (0.0-0.5); #Monocytes 0.4 10x3/uL (0.0-1.1); #Neutrophils 2.3 10x3/uL (1.5-8.4); %Basophils 0.5 % (0.0-2.0); %Eosinophils 1.2 % (0.0-6.0); %Lymphocytes 33.5 % (18.0-47.0); %Monocytes 8.7 % (0.0-10.0); %Neutrophils 55.9 % (40.0-75.0); Hematocrit 32.4 % (34.9-44.5); Hemoglobin 10.3 g/dL (12.0-15.5); Mean Corpuscular HGB CONC 31.8 g/dL (32.0-36.0); Mean Corpuscular Hemoglobin 27.4 pg (27.0-33.0); Mean Corpuscular Volume 86.2 fl (81.6-98.3); Mean Platelet Volume 11.8 fl (7.4-10.4); Platelet Count 135 10x3/uL (150-450); RBC Distribution Width 16.7 % (11.5-14.5); Red Blood Cell (RBC) Count 3.76 10x6/uL (3.90-5.03); White Blood Cell (WBC) Count 4.1 10x3/uL (3.5-10.5)
[2022-10-04 05:30] LABS: ALT (SGPT) 14 U/L (8-55); AST (SGOT) 26 U/L (5-34); Albumin 3.8 g/dL (3.4-4.8); Alkaline Phosphatase 73 U/L (40-110); Anion Gap 15 mmol/L (10-20); BUN (Urea Nitrogen) 14 mg/dL (9.8-20.1); Calc. Creatinine Clearance 65 mL/min (70-130); Calcium 9.2 mg/dL (7.8-10.44); Carbon Dioxide 21 mmol/L (23-31); Chloride 104 mmol/L (98-107); Estimated GFR 71; Globulin 3.4 g/dL (2.4-3.5); Glucose 108 mg/dL (80-115); Potassium 4.1 mmol/L (3.5-5.1); Protein, Total 7.2 g/dL (5.8-8.1); Sodium 136 mmol/L (136-145)
[2022-10-04] MEDS: hydrALAZINE 20 MG/ML VIAL SLOW IVP PRN ×3 (08:07→21:04)
[2022-10-04] MEDS ORDERED: Losartan Potassium 50 MG TAB PO SCH (09:00)
[2022-10-04] MEDS ORDERED: Magnevist 469MG/ML 20 ML VIAL ONE (10:44)
[2022-10-04] MEDS ORDERED: methylPREDNISolone Sod Succ 1 GM, Admixture Fee 1 EACH in Sodium Chloride 0.9% 100 ML IVPB SCH (12:00)
[2022-10-04] MEDS ORDERED: Pantoprazole 40 MG VIAL IVP SCH (12:00)
[2022-10-04] MEDS: Ezetimibe 10 MG TAB PO SCH ×2 (12:46→21:00)
[2022-10-04] MEDS: cloNIDine 0.1 MG TAB PO SCH ×2 (12:46→21:00)
[2022-10-04] MEDS: Amlodipine 10 MG TAB PO SCH (12:46)
[2022-10-04] MEDS: Aspirin 81 mg Enteric Coated Tablet PO SCH (12:46)
[2022-10-04] MEDS: Clopidogrel Bisulfate 75 MG TAB PO SCH (12:46)
[2022-10-04] MEDS: Mycophenolate 250 MG CAP PO SCH ×2 (12:47→21:00)
[2022-10-04] MEDS: Ursodiol 300 MG CAP PO SCH ×2 (12:47→21:00)
[2022-10-04] MEDS: Tacrolimus 0.5 MG CAP PO SCH ×2 (12:47→21:00)
[2022-10-04] MEDS: Gabapentin 300 MG CAP PO SCH ×2 (12:47→21:00)
[2022-10-04] MEDS: Lidocaine 4% Patch TD SCH (16:01)
[2022-10-04] MEDS: Lactated Ringer's 1,000 ML IV SCH (18:13)
[2022-10-04] MEDS: Atorvastatin Calcium 40 MG TAB PO SCH (21:00)
[2022-10-04 22:05] VITALS: BP 146/76; TEMP 98.7
[2022-10-05] MEDS ORDERED: Pantoprazole 40 MG VIAL IVP SCH (09:00)
== END 2022-10-04 21:20 | disposition short-term general hospital (02) | DRG 689 ==
LOC: CSHERS 18:33 → CSHTELE 09-25 00:27 → CSHIMCU 10-04 13:30
PROVIDERS: ADMIT Family Medicine; ATTEND Internal Medicine
DX: N30.01 Acute cystitis with hematuria (principal); G04.00 Acute disseminated encephalitis and encephalomyelitis, unspecified; G93.6 Cerebral edema; G93.41 Metabolic encephalopathy; D84.9 Immunodeficiency, unspecified; D61.818 Other pancytopenia; Z94.4 Liver transplant status; N17.9 Acute kidney failure, unspecified; E87.20 Acidosis, unspecified; I25.10 Atherosclerotic heart disease of native coronary artery without angina pectoris; E78.5 Hyperlipidemia, unspecified; R13.10 Dysphagia, unspecified; E11.51 Type 2 diabetes mellitus with diabetic peripheral angiopathy without gangrene; Z87.891 Personal history of nicotine dependence; Z20.822 Contact with and (suspected) exposure to COVID-19; Z79.899 Other long term (current) drug therapy; Z91.041 Radiographic dye allergy status; Z86.73 Personal history of transient ischemic attack (TIA), and cerebral infarction without residual deficits; Z79.82 Long term (current) use of aspirin; Z79.890 Hormone replacement therapy; Z95.1 Presence of aortocoronary bypass graft; Z90.49 Acquired absence of other specified parts of digestive tract; Z95.5 Presence of coronary angioplasty implant and graft; R53.81 Other malaise; E83.42 Hypomagnesemia; I11.0 Hypertensive heart disease with heart failure; I50.9 Heart failure, unspecified
CPT/HCPCS: 36415; 36416; 70450; 70551; 70552; 70553; 71045; 80048; 80053; 81001; 82140; 83690; 83735; 83880; 84100; 84146; 84443; 84484; 85025; 85027; 87086; 93005; 96365; A9579; C9113; J0360; J0696; J1650; J2060; J2930; J3475; J3490; J7050; J7120; J7507; J7517; U0002